=== PATIENT | female | born 1995 | race Caucasian/White ===

== ENCOUNTER 2019-06-26 06:07 | Inpatient (IN) | payer MEDICAID ==
--- NOTE | 2019-06-23 09:08 | PCM.LDHP ---
L&D History of Present Illness - General Date of Service: 06/26/19 (Pre-op H&P) Admit Problem/Dx: Patient Status Order with Admit Dx/Problem 06/26/19 06:00 Patient Status [ADT] Routine Admission Diagnosis/Problem Admission Diagnosis/Problem section Source of Information: Patient, Old Records, Provider, RN, Other ( episode, notes in EPIC) History Limitations: Reports: No Limitations - History of Present Illness Introduction:: Cosme is 24yo scheduled for primary @ 39w2d for persistent breech RSP position with unsuccessful external version attempt earlier this week. baby has been active. see EPIC notes for details of her . She has received excellent care. O+, RI, GBS negative. HGB 13.1 06-23-19 PLT 239 Anti-body screen positive for anti-M Location, : Reports: Uterus - Related Data Allergies/Adverse Reactions: Allergies Allergy/AdvReac Type Severity Reaction Status Date / Time No Known Allergies Allergy Verified 06/23/19 08:20 Past Medical History - Past Health History Medical/Surgical History: Denies Medical/Surgical History [employer] History: Reports: : 1 Para: 0 LMP (Approximate): Hematologic History: Reports: Other (See Below) Other Hematologic History: anti-body screenpositive for anti-M Dermatologic History: Reports: Eczema Other Dermatologic History: no tx. at present - Infectious Disease History Infectious Disease History: Reports: Chicken Pox - Past Surgical History Dermatological Surgical History: Reports: None Social & Family History - Family History Family Medical History: Noncontributory Endocrine/Metabolic: Reports: Diabetes, type II - Caffeine Use Caffeine Use: Reports: Coffee, Soda - Recreational Drug Use Recreational Drug Type: Reports: Marijuana/Hashish (had one + drug screen for cannabinoids early in , all the rest negative.) Recreational Drug Last Use: quit using during H&P Review of Systems - Review of Systems: Review Of Systems: Comprehensive ROS is negative, except as noted in HPI. General: Reports: No Symptoms HEENT: Reports: No Symptoms Pulmonary: Reports: No Symptoms Cardiovascular: Reports: No Symptoms Gastrointestinal: Reports: No Symptoms Genitourinary: Reports: No Symptoms Musculoskeletal: Reports: No Symptoms Skin: Reports: No Symptoms Psychiatric: Reports: No Symptoms Neurological: Reports: No Symptoms Hematologic/Lymphatic: Reports: No Symptoms Immunologic: Reports: No Symptoms L&D Exam - Exam Exam: See Below - OB Specific Fundal Height In cm: 40 Movement: Active Heart Tones: Present Presentation: Breech - Exam General: Alert, Oriented HEENT: PERRLA, Conjunctiva Clear, EACs Clear, EOMI, Hearing Intact, Mucosa Moist & [place], Nares Patent, Normal Nasal Septum, Posterior Pharynx Clear, TMs Clear Neck: Supple, Trachea Midline Lungs: Clear to Auscultation, Normal Respiratory Effort Cardiovascular: Regular Rate, Regular Rhythm GI/Abdominal Exam: Normal Bowel Sounds, Soft, Non-Tender, Pelvis Stable, Distended Rectal Exam: Deferred Genitourinary: Normal external exam, Enlarged uterus Back Exam: Normal Inspection, Full Range of Motion Extremities: Normal Inspection, Normal Range of Motion, Non-Tender, No Pedal Edema, Normal Capillary Refill Skin: Warm, Dry, Intact Neurological: Normal Gait, Normal Speech, Normal Tone, Sensation Intact Psychiatric: Alert, Normal Affect, Normal Mood - Patient Data Lab Results Last 24 hrs: hgb 13.1 WBC 10.9 PLT 239 blood type o+ anti-body screen positive with hx of anti-M antibody - Problem List (1) Breech presentation SNOMED Code(s): 1067079 ICD Code: O32.1XX0 - MATERNAL CARE FOR BREECH PRESENTATION, UNSP Status: Acute (2) Primiparous in third trimester SNOMED Code(s): 46487642, 98236947 ICD Code: Z34.03 - ENCNTR FOR SUPRVSN OF NORMAL FIRST PREG, THIRD TRIMESTER Status: Acute (3) Term SNOMED Code(s): 78410084 ICD Code: Z34.90 - ENCNTR FOR SUPRVSN OF NORMAL , UNSP, UNSP TRIMESTER Status: Acute Problem List Initiated/Reviewed/Updated: Yes Orders Last 24hrs: Active Orders 24 hr Category Date Time Status Patient Status [ADT] Routine ADT 06/26/19 06:00 Ordered Non Stress Test [RC] PER UNIT ROUTINE Care 06/23/19 08:41 Ordered Notify Provider Vital Signs OB [RC] ASDIRECTED Care 06/26/19 06:00 Ordered POC Labs [RC] ASDIRECTED Care 06/23/19 08:41 Ordered Peripheral IV Care [RC] . DIRECTED Care 06/26/19 06:00 Ordered Procedure Site Prep Instruct [RC] ASDIRECTED Care 06/23/19 08:41 Ordered RT Incentive Spirometry [RC] ASDIRECTED Care 06/23/19 08:41 Ordered Vital Signs [RC] PER UNIT ROUTINE Care 06/23/19 08:41 Ordered Nothing Per Oral Diet [DIET] Diet 06/26/19 Breakfast Ordered CBC WITH AUTO DIFF [HEME] AM Lab 06/27/19 05:11 Ordered Citric Acid/Sodium Citrate [Bicitra Solution] Med 06/26/19 07:00 Once 30 ml PO ONETIME ONE Lactated Ringers @ 125 MLS/HR(1000ml) Med 06/26/19 06:00 Ordered Lactated Ringers [Ringers, Lactated] 1,000 ml IV ASDIRECTED Lactated Ringers [Ringers, Lactated] 1,000 ml Med 06/26/19 06:00 Ordered IV .BOLUS Oxytocin 30 Units in NS @ 2 MUNITS/MIN(500ml) Med 06/26/19 07:00 Ordered Oxytocin/Normal Saline [Pitocin in NS 30 UNIT/500 ML] 30 unit in 500 ml IV TITRATE Sodium Chloride 0.9% [Saline Flush] Med 06/26/19 06:00 Ordered 10 ml FLUSH ASDIRECTED PRN Tranexamic Acid [Cyklokapron] 1,000 mg Med 06/26/19 07:00 Ordered Sodium Chloride 0.9% [Normal Saline] 100 ml IV ONETIME ceFAZolin [Ancef] 2 gm Med 06/26/19 08:00 Ordered Premix Bag 1 bag IV ONETIME Peripheral IV Insertion Adult [OM.PC] Routine Oth 06/26/19 06:00 Ordered Schedule Procedure [COMM] Per Unit Routine Oth 06/23/19 08:41 Ordered Resuscitation Status Routine Resus Stat 06/23/19 08:41 Ordered Medication Orders Citric Acid/Sodium Citrate (Bicitra Solution) 30 ml PO ONETIME ONE Stop: 06/26/19 07:01 Cefazolin Sodium/Dextrose 2 gm (/ Premix) 50 mls @ 100 mls/hr IV ONETIME ONE Stop: 06/26/19 08:29 Lactated Ringer's (Ringers, Lactated) 1,000 mls @ 125 mls/hr IV ASDIRECTED REGINE Lactated Ringer's (Ringers, Lactated) 1,000 mls @ 500 mls/hr IV .BOLUS REGINE Oxytocin/Sodium Chloride (Pitocin In Ns 30 Unit/500 Ml) 30 unit in 500 mls @ 2 mls/hr IV TITRATE REGINE; Protocol Tranexamic Acid 1,000 mg/ (Sodium Chloride) 110 mls @ 660 mls/hr IV ONETIME PRN PRN Reason: Bleeding Sodium Chloride (Saline Flush) 10 ml FLUSH ASDIRECTED PRN PRN Reason: Keep Vein Open Assessment/Plan Comment:: Assessment: term 24yo @ 39w2d persistent breech, unsuccessful version attempt O+ RI GBS negative hgb 13.1, PLT 239, WBC 10.9 scheduled for PLTCS 1-3-20 with hmb/supervisor [employer] office Plan: will proceed with PLTCS as scheduled reviewed with Cosme sharpe spinal with Pfannenstiel likely home on PPD #3 T&S for 2 U PRBCs due to Hx Positive antibody screen/ anti-M antibody reviewed risks, alternatives, benefits including but not limited to infection, use of antibiotics, hemorrhage, use of blood transfusion with its inherent risks , DVT, PE, prevention with early ambulation, AGGIE hose, SCDs, etc, rxn to anesthesia, complications, injury to mother or baby, etc. all questions answered. She appears to understand and wishes to proceed. consent obtained. orders placed. hmb
[~2019-06-26 06:07] MED LIST: Sodium Chloride 0.9% 10 ML Syringe FLUSH PRN
[2019-06-26] MEDS: Lactated Ringers 1,000 ML IV SCH ×4 (06:15→11:10)
[2019-06-26] MEDS ORDERED: Citric Acid/Sodium Citrate Solution 30 ML Cup PO ONE ×2 (07:00→07:30)
[2019-06-26] MEDS ORDERED: Tranexamic Acid 1,000 MG in Sodium Chloride 0.9% 100 ML IV PRN (07:00)
[2019-06-26] MEDS ORDERED: Oxytocin/Normal Saline 30 UNIT/500 ML BAG IV SCH (07:00)
[2019-06-26] MEDS ORDERED: Oxytocin/Normal Saline 60 UNIT/1,000 ML BAG ONE (07:11)
[2019-06-26] MEDS ORDERED: ceFAZolin 2 GM in Premix Bag 1 BAG IV ONE (08:00)
[2019-06-26] MEDS ORDERED: diphenhydrAMINE 50 MG/ML SDV IVPUSH PRN (09:02)
[2019-06-26] MEDS ORDERED: Ondansetron 4 MG/2 ML SDV IV PRN (09:02)
[2019-06-26] MEDS ORDERED: Acetaminophen 325 MG Tab PO PRN (09:02)
[2019-06-26] MEDS ORDERED: ePHEDrine 50 MG/ML SDV IVPUSH PRN (09:02)
[2019-06-26] MEDS ORDERED: Carboprost Tromethamine 250 MCG/1 ML Amp IM PRN (09:02)
[2019-06-26] MEDS ORDERED: Methylergonovine 0.2 MG/1 ML Amp IM PRN (09:02)
[2019-06-26] MEDS ORDERED: Misoprostol 400 MCG (4 X 100 MCG TAB) RECTAL PRN (09:02)
[2019-06-26] MEDS ORDERED: Naloxone 2 MG/2 ML Syringe IVPUSH PRN (09:02)
[2019-06-26] MEDS ORDERED: Lactated Ringers 1,000 ML IV SCH (09:15)
[2019-06-26] MEDS ORDERED: Ondansetron 4 MG/2 ML SDV IV ONE (11:11)
[2019-06-26] MEDS ORDERED: Lactated Ringers 1,000 ML IV ONE (11:11)
[2019-06-26] MEDS ORDERED: Morphine PF 1 MG/ML Amp ONE (11:11)
[2019-06-26] MEDS ORDERED: Ketorolac 30 MG/ML SDV IVPUSH ONE (11:11)
[2019-06-26] MEDS ORDERED: Sodium Bicarbonate 4.2% 2.5 MEQ/5 ML SDV ONE (11:11)
[2019-06-26] MEDS ORDERED: Dexamethasone 4 MG/ML SDV IV ONE (11:11)
[2019-06-26] MEDS ORDERED: Oxytocin/Normal Saline 30 UNIT/500 ML BAG IV ONE (11:17)
[2019-06-26] MEDS ORDERED: ceFAZolin 1 GM in Premix Bag 1 BAG IV SCH (14:00)
--- NOTE | 2019-06-26 15:00 | OR ---
DATE: 06/26/2019 PROCEDURE: Primary low transverse section. ANESTHESIA: Spinal anesthesia. IMPREGNATOR OPERATOR: Ilana Villavicencio MD. PREOPERATIVE DIAGNOSES: 1. A 24-year-old, 1, para 0, 39-2/7 weeks' gestation with persistent breech presentation, not responding to external version attempt. 2. O-positive blood type. Rubella immune. Group B strep negative. 3. Positive antibody screen (anti-M antibody). 4. Hudson breech presentation prior to surgery with right sacrum posterior presentation. POSTOPERATIVE DIAGNOSES: 1. A 24-year-old, 1, para 0, 39-2/7 weeks' gestation with persistent breech presentation, not responding to external version attempt, now delivered/G1, now P1. 2. Viable female , 7 pounds 10 ounces/3460 g with scores of 9 and 9 at one and five minutes respectively. 3. O positive blood type. Rubella immune. Group B strep negative. 4. Positive antibody screen (anti-M antibody). 5. Hudson breech presentation prior to surgery with right sacrum posterior presentation, delivered with no complications. ANESTHESIA: Spinal. ESTIMATED BLOOD LOSS: 400 mL. PREOPERATIVE ANTIBIOTICS: 2 g Ancef IV. COMPLICATIONS: None. FINDINGS: This delightful 24-year-old 1, para 0, presented at 39-2/7 weeks' gestation to the OB floor as scheduled for primary low transverse section for persistent breech presentation at term. Nonstress test was reactive. Ultrasound and exam confirmed persistent breech presentation, and she appeared to be in a hudson breech, RSP position on the OB floor. She was brought down to the OR and underwent spinal anesthesia. She was prepped and draped in the usual sterile manner. She had known anti-M antibody and was seen 3 days ago. Type and cross were done at that time and 2 units of packed RBC was available for her if necessary for blood transfusion. Hemoglobin at that time was 13.1 with platelet count of 239 and labs were not repeated this morning. A surgical marker was used to lui Pfannenstiel incision. Scalpel was used to enter the skin. Electrocautery was used down to the subcutaneous tissue to the fascia, which was divided transversely. Superior and inferior fascial flaps were developed with sharp and blunt dissection. Rectus was identified and divided in the midline. Peritoneum was identified and entered bluntly. The large Titi retractor was placed. A bladder flap was developed with sharp and blunt dissection. A stab incision was made into the lower uterine segment and extended bilaterally with sharp and blunt dissection. Clear amniotic fluid was noted. Dr. Everett and I then switched sides for ease of delivery due to the baby's position/presentation. Baby's sacrum was indeed in the right sacrum posterior position. I slipped my hand under the breech and elevated up into the incision quite easily. The baby's left leg was flexed and delivered followed by the right leg, which was tucked behind her, and a small pop could be felt prior to delivery while still in utero. The baby was then delivered down to the chest. The right arm was swept in front and down and delivered. The baby was turned and the left arm was delivered followed by the head. She was suctioned and stimulated, had a strong cry at with scores of 9 and 9. Cord was doubly clamped and cut, and I carried the baby up to see the mom at the head of the bed. Following this, she was carried over to the waiting nursery staff at the [facility]. A cord blood sample was obtained. She was later found to weigh 7 pounds 10 ounces/3460 g. Cord blood sample was obtained by Dr. Everett who also removed the placenta. Subsequently examined and found it to be calcified, though complete, intact, and unremarkable. The cord was 3-vessel and appeared within normal limits. The uterus was wiped clean and dry. Uterine edges were grasped with Evangelista forceps and the uterine incision was closed with a running locking 0 Vicryl suture with excellent results and hemostasis. A second imbricating layer of 0 Vicryl suture was placed, and the patient was a candidate. The incision was again examined and found to be hemostatic. The gutters were examined and found to be dry with no sign of clots. The Titi retractor was removed and the incision was again examined. No sign of active bleeding. No sign of clots. The peritoneum was closed with a running suture. The fascia was then closed with a looped PDS suture without difficulty. Subcutaneous tissue was irrigated, aspirated, and all bleeders were electrocauterized. The skin edges brought together with mark. The patient tolerated the procedure well. Uterus was firm and Pitocin continued to run IV infusion per protocol. Bleeding was minimal and estimated blood loss mixed with amniotic fluid was 400 mL. The patient tolerated the procedure well and there were no intraoperative complications. Mom was transferred to Recovery in good condition and will follow and postop orders and cares. [facility] /[id number]
[2019-06-26] MEDS: Ketorolac 30 MG/ML SDV IVPUSH SCH ×2 (16:00→21:01)
[2019-06-26] MEDS: ceFAZolin 1 GM in Premix Bag 1 BAG IV SCH (16:01)
[2019-06-26] MEDS: Simethicone 80 MG Tab.Chew PO SCH ×3 (16:18→21:01)
[2019-06-27] MEDS: ceFAZolin 1 GM in Premix Bag 1 BAG IV SCH ×2 (00:15→08:11)
[2019-06-27] MEDS: Ketorolac 30 MG/ML SDV IVPUSH SCH (03:29)
[2019-06-27] MEDS: Simethicone 80 MG Tab.Chew PO SCH ×4 (08:10→21:11)
[2019-06-27] MEDS: Prenatal Multivitamin with Calcium/Folic Acid/Iron Tab PO SCH (08:10)
[2019-06-27] MEDS: Docusate Sodium 100 MG Cap PO PRN ×2 (08:10→21:11)
[2019-06-27] MEDS: Acetaminophen/oxyCODONE 325-5 MG Tab PO PRN ×4 (09:04→22:47)
[2019-06-27] MEDS: Ibuprofen 800 MG Tab PO PRN ×2 (13:00→21:11)
--- NOTE | 2019-06-27 15:10 | PCM.SN ---
- Free Text/Narrative Note: DOS: 06-27-2019 POD/PPD #1 Doing well following PLTCS for breech presentation yesterday delivering a viable female infant. feels well. eating and cleans plate every meal, ambulating ok. Cosme has garcia out and has voided "like a race horse" per staff. drinking water well. nursing. VSS, afebrile. exam as expected. mood good. visits easily today. enjoying Ashen. Labs reassuring with hgb 10.7, WBC 10.7, PLT 211. continue current cares and orders. will help her find good reliable sources for information re: care. likely home Saturday. All questions answered for this delightful patient. b
[2019-06-28] MEDS: Acetaminophen/oxyCODONE 325-5 MG Tab PO PRN ×5 (04:44→22:59)
[2019-06-28] MEDS: Prenatal Multivitamin with Calcium/Folic Acid/Iron Tab PO SCH (08:30)
[2019-06-28] MEDS: Docusate Sodium 100 MG Cap PO PRN ×2 (08:31→20:55)
[2019-06-28] MEDS: Simethicone 80 MG Tab.Chew PO SCH ×4 (08:31→20:55)
[2019-06-28] MEDS: Ibuprofen 800 MG Tab PO PRN ×2 (08:31→17:50)
--- NOTE | 2019-06-28 10:13 | PCM.SN ---
- Free Text/Narrative Note: DOS: 06-28-2019
[2019-06-29] MEDS: Ibuprofen 800 MG Tab PO PRN ×2 (02:06→13:13)
[2019-06-29] MEDS: Acetaminophen/oxyCODONE 325-5 MG Tab PO PRN ×3 (03:55→13:11)
[2019-06-29] MEDS: Prenatal Multivitamin with Calcium/Folic Acid/Iron Tab PO SCH (08:14)
[2019-06-29] MEDS: Docusate Sodium 100 MG Cap PO PRN (08:15)
[2019-06-29] MEDS: Simethicone 80 MG Tab.Chew PO SCH ×2 (08:15→13:14)
--- NOTE | 2019-06-29 10:09 | PCM.DCSUM1 ---
Discharge Summary - Discharge Data Discharge Disposition: Home, Self-Care 01 Condition: Good - Referral to Home Health Primary Care Physician: Erin Burns MD - Discharge Diagnosis/Problem(s) (1) Breech presentation SNOMED Code(s): 0869864 ICD Code: O32.1XX0 - MATERNAL CARE FOR BREECH PRESENTATION, UNSP Status: Acute Current Visit: No (2) Primiparous in third trimester SNOMED Code(s): 09092605, 94849115 ICD Code: Z34.03 - ENCNTR FOR SUPRVSN OF NORMAL FIRST PREG, THIRD TRIMESTER Status: Acute Current Visit: No (3) Term SNOMED Code(s): 79951667 ICD Code: Z34.90 - ENCNTR FOR SUPRVSN OF NORMAL , UNSP, UNSP TRIMESTER Status: Acute Current Visit: No - Patient Summary/Data Consults: Consultations 06/26/19 09:02 Consult to Application Security Specialist [CONS] Routine - Discharge Plan Home Medications: Home Meds No122/Iron/Folic Acid [ Multi Tablet] 1 tab PO DAILY 06/26/19 [ History] Patient Handouts: Baby Blues, Delivery, Care After, Home Care Instructions for Mom - Patient Data Vitals - Most Recent: Last Vital Signs Temp 98.1 F 06/29/19 08:00 Pulse 92 06/29/19 08:00 Resp 16 06/29/19 08:00 BP 126/79 06/29/19 08:00 Pulse Ox 99 06/28/19 04:49 Weight - Most Recent: 187 lb Lab Results - Last 24 hrs: Laboratory Results - last 24 hr 06/29/19 Range/Units 05:40 WBC 6.8 (5.0-10.0) 10^3/uL RBC 3.76 L (4.2-5.4) 10^6/uL Hgb 11.1 L (12.0-16.0) g/dL Hct 33.4 L (37.0-47.0) % MCV 88.8 (80-100) fL MCH 29.5 (27.0-34.0) pg MCHC 33.2 (33.0-35.0) g/dL Plt Count 197 (150-450) 10^3/uL Med Orders - Current: Current Medications Acetaminophen (Tylenol) 650 mg PO Q6H PRN PRN Reason: mild pain or fever Carboprost Tromethamine (Hemabate Ds) 250 mcg IM ONETIME PRN PRN Reason: Bleeding Diphenhydramine HCl (Benadryl) 25 mg IVPUSH Q6H PRN PRN Reason: Itching or Nausea Docusate Sodium (Colace) 100 mg PO Q12H PRN PRN Reason: Constipation Last Admin: 06/29/19 08:15 Dose: 100 mg Ephedrine Sulfate (Ephedrine Sulfate) 5 mg IVPUSH SEECOMMENT PRN PRN Reason: Other Lactated Ringer's (Ringers, Lactated) 1,000 mls @ 125 mls/hr IV ASDIRECTED [facility] Last Admin: 06/26/19 11:10 Dose: 125 mls/hr Lactated Ringer's (Ringers, Lactated) 1,000 mls @ 500 mls/hr IV .BOLUS [facility] Last Admin: 06/26/19 07:15 Dose: 999 mls/hr Oxytocin/Sodium Chloride (Pitocin In Ns 30 Unit/500 Ml) 30 unit in 500 mls @ 2 mls/hr IV TITRATE [facility]; Protocol Last Titration: 06/26/19 10:00 Dose: 50 mls/hr Tranexamic Acid 1,000 mg/ (Sodium Chloride) 110 mls @ 660 mls/hr IV ONETIME PRN PRN Reason: Bleeding Lactated Ringer's (Ringers, Lactated) 1,000 mls @ 125 mls/hr IV ASDIRECTED [facility] Last Admin: 06/26/19 20:08 Dose: 125 mls/hr Ibuprofen (Motrin) 800 mg PO Q8H PRN PRN Reason: mild pain or fever Last Admin: 06/29/19 02:06 Dose: 800 mg Methylergonovine Maleate (Methergine) 0.2 mg IM ONETIME PRN PRN Reason: Excessive Vaginal Bleeding Misoprostol (Cytotec) 800 mcg RECTAL ASDIRECTED PRN PRN Reason: Excessive bleeding Naloxone HCl (Narcan) 0.1 mg IVPUSH SEECOMMENT PRN PRN Reason: Respiratory Depression Ondansetron HCl (Zofran) 4 mg IV Q4H PRN PRN Reason: Nausea/Vomiting Last Admin: 06/26/19 12:11 Dose: 4 mg Oxycodone/Acetaminophen (Percocet 325-5 Mg) 1 tab PO Q4H PRN PRN Reason: Pain (moderate 4-6), use 1st Last Admin: 06/27/19 22:47 Dose: 1 tab Oxycodone/Acetaminophen (Percocet 325-5 Mg) 2 tab PO Q4H PRN PRN Reason: Pain (moderate 4-6), use 2nd Last Admin: 06/29/19 08:15 Dose: 2 tab Prenat Multivit/[place]/Iron/Folic Ac ( Plus Iron) 1 each PO DAILY [facility] Last Admin: 06/29/19 08:14 Dose: 1 each Simethicone (Simethicone) 160 mg PO QID [facility] Last Admin: 06/29/19 08:15 Dose: 160 mg Sodium Chloride (Saline Flush) 10 ml FLUSH ASDIRECTED PRN PRN Reason: Keep Vein Open Discontinued Medications Citric Acid/Sodium Citrate (Bicitra Solution) 30 ml PO ONETIME ONE Stop: 06/26/19 07:31 Last Admin: 06/26/19 07:35 Dose: 30 ml Dexamethasone (Dexamethasone) 8 mg IV .STK-MED ONE Stop: 06/26/19 11:12 Cefazolin Sodium/Dextrose 2 gm (/ Premix) 50 mls @ 100 mls/hr IV ONETIME ONE Stop: 06/26/19 08:29 Last Admin: 06/26/19 07:49 Dose: 100 mls/hr Oxytocin/Sodium Chloride (Pitocin In Ns 30 Unit/500 Ml) Confirm Administered Dose 60 unit in 1,000 mls @ as directed .ROUTE .STK-MED ONE Stop: 06/26/19 07:12 Cefazolin Sodium/Dextrose 1 gm (/ Premix) 50 mls @ 100 mls/hr IV Q8HR [facility] Stop: 06/27/19 06:29 Last Admin: 06/27/19 01:53 Dose: Not Given Lactated Ringer's (Ringers, Lactated) 1,000 mls @ as directed IV .STK-MED ONE Stop: 06/26/19 11:12 Oxytocin/Sodium Chloride (Pitocin In Ns 30 Unit/500 Ml) 30 unit in 500 mls @ as directed IV .STK-MED ONE Stop: 06/26/19 11:18 Cefazolin Sodium/Dextrose 1 gm (/ Premix) 50 mls @ 100 mls/hr IV Q8H [facility] Stop: 06/27/19 08:29 Last Admin: 06/27/19 08:11 Dose: 100 mls/hr Ketorolac Tromethamine (Toradol) 15 mg IVPUSH Q6H [facility] Stop: 06/27/19 03:01 Last Admin: 06/27/19 03:29 Dose: 15 mg Ketorolac Tromethamine (Toradol) 30 mg IVPUSH .STK-MED ONE Stop: 06/26/19 11:12 Morphine Sulfate (Duramorph Pf) 0.2 mg .XX .STK-MED ONE Stop: 06/26/19 11:12 Ondansetron HCl (Zofran) 4 mg IV .STK-MED ONE Stop: 06/26/19 11:12 Sodium Bicarbonate (Sodium Bicarbonate 4.2%) 0.5 meq .XX .STK-MED ONE Stop: 06/26/19 11:12
== END 2019-06-29 14:30 | disposition home or self-care (01) | DRG 788 ==
LOC: DL.OB 06:07 → OBSVTOIN 08:21
PROVIDERS: ADMIT Family Medicine; ATTEND Family Medicine
PROC: 10D00Z1 Extraction of Products of Conception, Low, Open Approach (ICD-10-PCS; principal; 2019-06-26)
DX: O32.1XX0 Maternal care for breech presentation, not applicable or unspecified (principal); Z79.899 Other long term (current) drug therapy; Z3A.39 39 weeks gestation of pregnancy; Z37.0 Single live birth; Z87.891 Personal history of nicotine dependence
CPT/HCPCS: 36415; 59025; 85025; 85027; A9270-GY; J0690; J1100; J1885; J2274; J2405; J2590; J7120